=== PATIENT | female | born 1990 | race American Indian/Alaskan Native ===

== ENCOUNTER 2022-03-29 09:04 | Emergency (ER) | payer SELFPAY ==
[2022-03-29] MEDS ORDERED: cloNIDine 0.1 MG TAB PO ONE (13:04)
[2022-03-29 14:15] LABS: Hematocrit 31.9 % (30.3-42.9); Hemoglobin 10.8 gm/dl (10.1-14.3); Mean Corpuscular HGB Conc 34 % (30-34); Platelet Count 350 K/mm3 (140-440); Red Blood Count 5.12 M/mm3 (3.65-5.03)
[2022-03-29 14:16] LABS: Mean Corpuscular Volume 62 fl (79-97); Red Cell Distribution Width 21.5 % (13.2-15.2)
[2022-03-29 14:36] LABS: Blood Urea Nitrogen 7 mg/dL (7-17); Calcium 9.3 mg/dL (8.4-10.2); Hemolysis Index 3
[2022-03-29 14:39] LABS: BUN/Creatinine Ratio 12
[2022-03-29 15:04] LABS: HCG Qualitative,Urine Negative (Negative)
[2022-03-29 15:05] LABS: Bilirubin,Urine NEG (Negative); Blood,Urine NEG (Negative); Color,Urine Yellow (Yellow); Protein,Urine <15 mg/dL mg/dL (Negative); Urobilinogen,Urine < 2.0 mg/dL (<2.0)
[2022-03-29 15:09] LABS: Bacteria,Urine 1+ /HPF (Negative); Mucus,Urine 2+ /HPF
--- NOTE | 2022-03-29 15:32 | Emergency Department Report ---
ED Chest Pain HPI - General Chief Complaint: Sore Throat Stated Complaint: SORE THROAT Time Seen by Provider: 03/29/22 12:59 Source: patient Mode of arrival: Ambulatory Limitations: No Limitations - History of Present Illness Severity scale (0 -10): 10 - Related Data Previous Rx's Medication Instructions Recorded Last Taken Type Ibuprofen [Motrin 600 MG tab] 600 mg PO Q8H PRN #30 tablet 03/29/22 Unknown Rx cephALEXin [Keflex] 500 mg PO BID #14 cap 03/29/22 Unknown Rx Allergies Allergy/AdvReac Type Severity Reaction Status Date / Time No Known Allergies Allergy Unverified 03/29/22 09:21 Heart Score - HEART Score History: Slightly suspicious EKG: Normal Age: < 45 Risk factors: 1-2 risk factors Troponin: < normal limit HEART Score: 1 - EKG Read Time Time EKG Completed: 11:41 EKG Read Time: 11:45 ED Review of Systems ROS: Stated complaint: SORE THROAT Other details as noted in HPI ED Past Medical Hx - Past Medical History Previous Medical History?: No - Surgical History Past Surgical History?: No - Social History Smoking Status: Never Smoker Substance Use Type: None - Medications Home Medications: Home Medications Medication Instructions Recorded Confirmed Last Taken Type Ibuprofen [Motrin 600 MG tab] 600 mg PO Q8H PRN #30 tablet 03/29/22 Unknown Rx cephALEXin [Keflex] 500 mg PO BID #14 cap 03/29/22 Unknown Rx ED Physical Exam - General Limitations: No Limitations ED Course Vital Signs 03/29/22 03/29/22 03/29/22 09:21 13:21 14:01 Temperature 98.4 F Pulse Rate 100 H 89 85 Respiratory 20 18 Rate Blood Pressure 181/133 Blood Pressure 173/127 162/109 [Right] O2 Sat by Pulse 99 100 Oximetry 03/29/22 14:59 Temperature Pulse Rate 85 Respiratory 17 Rate Blood Pressure Blood Pressure 157/115 [Right] O2 Sat by Pulse 100 Oximetry ED Medical Decision Making - Lab Data Result diagrams: 03/29/22 13:08 03/29/22 13:08 Critical care attestation.: If time is entered above; I have spent that time in minutes in the direct care of this critically ill patient, excluding procedure time. ED Disposition Clinical Impression: Chest pain Qualifiers: Chest pain type: unspecified Qualified Code(s): R07.9 - Chest pain, unspecified UTI (urinary tract infection) Qualifiers: Urinary tract infection type: acute cystitis Hematuria presence: without hematuria Qualified Code(s): N30.00 - Acute cystitis without hematuria Syncope Qualifiers: Syncope type: unspecified Qualified Code(s): R55 - Syncope and collapse Disposition: 01 HOME / SELF CARE / HOMELESS Is pt being admited?: No Does the pt Need Aspirin: No Condition: Stable Instructions: Syncope (ED), Nonspecific Chest Pain, Adult, [id number], Urinary Tract Infection, Adult, [id number], Syncope, [id number] Additional Instructions: Medications as prescribed. Follow-up with cardiology and your primary care provider for further evaluation and management. Return to the ER as needed. Prescriptions: cephALEXin [Keflex] 500 mg PO BID #14 cap Ibuprofen [Motrin 600 MG tab] 600 mg PO Q8H PRN #30 tablet PRN Reason: Pain Referrals: JOHAN LEWIS MD [Staff Physician] - 3-5 Days EMEKA MARTINEZ MD [Staff Physician] - 3-5 Days VANDANA ZABALA MD [Staff Physician] - 3-5 Days Forms: Work/School Release Form(ED) Time of Disposition: 15:32
--- NOTE | 2022-03-29 16:44 | Cat Scan Report ---
CT NECK WITH INTRAVENOUS CONTRAST AND MULTIPLANAR RECONSTRUCTION CLINICAL HISTORY: neck pain and swelling, r/o peritonsillar abscess TECHNIQUE: 2.5 mm thick contiguous axial scans were obtained from the skull base down to the aortic arch during intravenous contrast administration. In addition to evaluation of axial source images sagittal and co loan multiplanar reconstructions were produced and reviewed for this report. CONTRAST DOSE REPORT: Omnipaque 300: [address] imaging studies performed at this facility utilize dose modulation, iterative reconstruction o r weight based dosing, if appropriate, to obtain the lowest achievable radiation dose. FINDINGS: AIRWAY: There is enlargement of the palatine tonsils bilaterally with no definite indication of tonsi llar or peritonsillar abscess. Complains of the parapharyngeal space are normally maintained. No levy tional abnormalities are seen along the course of the airway. Nasopharynx, oropharynx, hypopharynx, l arynx and visualized portions of the subglottic airway all have an otherwise unremarkable appearance. LYMPH NODES: There is no indication of cervical lymphadenopathy. ORAL CAVITY/FLOOR OF MOUTH: No abnormalities are seen in evaluation of the oral cavity and tongue. Th e floor the mouth has a normal appearance. MAJOR SALIVARY GLANDS: The parotid and submandibular salivary glands have a normal appearance. NASAL CAVITY AND PARANASAL SINUSES: A small retention cyst or polyp is seen along the inferior latera l aspect of the right maxillary sinus. Paranasal sinuses are otherwise free from inflammatory disease . Bilateral anatoliy bullosa is noted. Pneumatization of the middle turbinates results in expansion of the structures. Air passageways the nasal cavity and OM U are adequately maintained. ORBITS:No abnormalities of the visualized portions of the orbits are identified. Globes, optic nerves , extraocular muscles and lacrimal glands have an unremarkable appearance. THYROID GLAND: The thyroid gland is normal in size and homogeneous in attenuation. No focal thyroid l esions are identified. TEMPORAL BONES:Mastoid air cells are normally pneumatized. CRANIOCERVICAL JUNCTION:No significant abnormality. CERVICAL SPINE: Evaluation of the cervical spine reveals no significant abnormality. Normal alignment is maintained. No significant degenerative changes are identified. LUNG APICES: Evaluation of the lung apices reveals no abnormality. There is no indication of lung nod ule or infiltrate. The visualized portions of the superior mediastinum have an unremarkable appearanc e. CONTRAST ADMINISTRATION: Enhancement of normal vascular structures is demonstrated. No areas of abnor mal contrast enhancement are identified. IMPRESSION: Bilateral enlargement of the palatine tonsils is observed without evidence of tonsillar or peritonsil lar abscess. Signer Name: Trevor Gracia MD Signed: 03/29/2022 4:40 PM Workstation Name: [id number]
[2022-03-29] MEDS ORDERED: KETOROLAC 30 MG/1 ML INJ IV ONE (16:51)
[2022-03-29] MEDS ORDERED: dexAMETHasone 4 MG/ML VIAL IV ONE (16:51)
--- NOTE | 2022-03-29 16:58 | Emergency Department Report ---
ED ENT HPI - General Chief complaint: Sore Throat Stated complaint: SORE THROAT Time Seen by Provider: 03/29/22 12:59 Source: patient Mode of arrival: Ambulatory Limitations: No Limitations - History of Present Illness Initial comments: 32-year-old black female with no past medical history presents to the emergency department for evaluation of 2-day history of worsening sore throat along with swelling to her throat. She states that she has a history of recurrent strep throat but this time and she has some shortness of breath because she feels like her throat is swollen more so than usual in the back. She states that she has had low-grade fever but denies headache, abdominal pain. MD complaint: sore throat, difficulty swallowing -: Gradual, days(s) (2) Location: throat Severity: severe Severity scale (0 -10): 9 Quality: aching Consistency: constant Worsens with: swallowing Associated Symptoms: fever, pain with swallowing, sore throat. denies: cough, gum swelling, toothache, tinnitus, hearing loss, discharge from ear, rhinorrhea - Related Data Previous Rx's Medication Instructions Recorded Last Taken Type Ibuprofen [Motrin 600 MG tab] 600 mg PO Q8H PRN #30 tablet 03/29/22 Unknown Rx cephALEXin [Keflex] 500 mg PO BID #14 cap 03/29/22 Unknown Rx methylPREDNISolone [Medrol 4MG 4 mg PO DAILY #1 pack 03/29/22 Unknown Rx DOSEPAK (21 tabs)] Allergies Allergy/AdvReac Type Severity Reaction Status Date / Time No Known Allergies Allergy Unverified 03/29/22 09:21 ED Dental HPI - General Chief complaint: Sore Throat Stated complaint: SORE THROAT Time Seen by Provider: 03/29/22 12:59 Source: patient Mode of arrival: Ambulatory Limitations: No Limitations - Related Data Previous Rx's Medication Instructions Recorded Last Taken Type Ibuprofen [Motrin 600 MG tab] 600 mg PO Q8H PRN #30 tablet 03/29/22 Unknown Rx cephALEXin [Keflex] 500 mg PO BID #14 cap 03/29/22 Unknown Rx methylPREDNISolone [Medrol 4MG 4 mg PO DAILY #1 pack 03/29/22 Unknown Rx DOSEPAK (21 tabs)] Allergies Allergy/AdvReac Type Severity Reaction Status Date / Time No Known Allergies Allergy Unverified 03/29/22 09:21 ED Review of Systems ROS: Stated complaint: SORE THROAT Other details as noted in HPI Comment: All other systems reviewed and negative Constitutional: denies: chills, fever, malaise, weakness Eyes: denies: vision change ENT: ear pain, throat pain. denies: dental pain, congestion Respiratory: denies: cough, shortness of breath, SOB with exertion, SOB at rest, stridor, wheezing Cardiovascular: denies: chest pain, palpitations ED Past Medical Hx - Past Medical History Previous Medical History?: No - Surgical History Past Surgical History?: No - Social History Smoking Status: Never Smoker Substance Use Type: None - Medications Home Medications: Home Medications Medication Instructions Recorded Confirmed Last Taken Type Ibuprofen [Motrin 600 MG tab] 600 mg PO Q8H PRN #30 tablet 03/29/22 Unknown Rx cephALEXin [Keflex] 500 mg PO BID #14 cap 03/29/22 Unknown Rx methylPREDNISolone [Medrol 4MG 4 mg PO DAILY #1 pack 03/29/22 Unknown Rx DOSEPAK (21 tabs)] ED Physical Exam - General Limitations: No Limitations General appearance: alert, in no apparent distress - Head Head exam: Absent: atraumatic, normocephalic - Eye Eye exam: Present: normal appearance. Absent: conjunctival injection, periorbital swelling, periorbital tenderness - Expanded ENT Exam Expanded Mouth exam: Present: trismus. Absent: drooling, muffled voice Throat exam: Positive: tonsillar erythema, tonsillomegaly, tonsillar exudate, L peritonsillar mass - Neck Neck exam: Present: normal inspection, tenderness, lymphadenopathy - Respiratory Respiratory exam: Present: normal lung sounds bilaterally. Absent: respiratory distress, wheezes, rales, rhonchi, stridor, chest wall tenderness - Cardiovascular Cardiovascular Exam: Present: tachycardia, normal heart sounds - GI/Abdominal GI/Abdominal exam: Present: soft, normal bowel sounds. Absent: distended, tenderness, guarding, rebound, rigid - Extremities Exam Extremities exam: Present: normal inspection, normal capillary refill - Back Exam Back exam: Present: normal inspection. Absent: CVA tenderness (R), CVA tenderness (L), vertebral tenderness - Neurological Exam Neurological exam: Present: alert, oriented X3, CN II-XII intact, normal gait - Psychiatric Psychiatric exam: Present: normal affect, normal mood - Skin Skin exam: Present: warm, dry, intact, normal color ED Course Vital Signs 03/29/22 03/29/22 03/29/22 09:21 13:21 14:01 Temperature 98.4 F Pulse Rate 100 H 89 85 Respiratory 20 18 Rate Blood Pressure 181/133 Blood Pressure 173/127 162/109 [Right] O2 Sat by Pulse 99 100 Oximetry 03/29/22 03/29/22 14:59 17:16 Temperature 98.5 F Pulse Rate 85 84 Respiratory 17 18 Rate Blood Pressure Blood Pressure 157/115 154/110 [Right] O2 Sat by Pulse 100 100 Oximetry ED Medical Decision Making - Lab Data Result diagrams: 03/29/22 13:08 03/29/22 13:08 - Radiology Data Radiology results: report reviewed, image reviewed CT soft tissue neck with contrast: FINDINGS: AIRWAY: There is enlargement of the palatine tonsils bilaterally with no definite indication of tonsillar or peritonsillar abscess. Complains of the parapharyngeal space are normally maintained. No additional abnormalities are seen along the course of the airway. Nasopha rynx, oropharynx, hypopharynx, larynx and visualized portions of the subglottic airway all have an otherwise unremarkable appearance. LYMPH NODES: There is no indication of cervical lymphadenopathy. ORAL CAVITY/FLOOR OF MOUTH: No abnormalities are seen in evaluation of the oral cavity and tongue. The floor the mouth has a normal appearance. MAJOR SALIVARY GLANDS: The parotid and submandibular salivary glands have a normal appearance. NASAL CAVITY AND PARANASAL SINUSES: A small retention cyst or polyp is seen along the inferior lateral aspect of the right maxillary sinus. Paranasal sinuses are otherwise free from inflammatory disease. Bilateral anatoliy bullosa is noted. Pneumatization of the middle turbinates results in expansion of the structures. Air passageways the nasal cavity and OM U are adequately maintained. ORBITS:No abnormalities of the visualized portions of the orbits are identified. Globes, optic nerves, extraocular muscles and lacrimal glands have an unremarkable appearance. THYROID GLAND: The thyroid gland is normal in size and homogeneous in attenuation. No focal thyroid lesions are identified. TEMPORAL BONES:Mastoid air cells are normally pneumatized. CRANIOCERVICAL JUNCTION:No significant abnormality. CERVICAL SPINE: Evaluation of the cervical spine reveals no significant abnormality. Normal alignment is maintained. No significant degenerative changes are identified. LUNG APICES: Evaluation of the lung apices reveals no abnormality. There is no indication of lung nodule or infiltrate. The visualized portions of the superior mediastinum have an unremarkable appearance. CONTRAST ADMINISTRATION: Enhancement of normal vascular structures is demonstrated. No areas of abnormal contrast enhancement are identified. IMPRESSION: Bilateral enlargement of the palatine tonsils is observed without evidence of tonsillar or peritonsillar abscess. - Medical Decision Making 32-year-old black female with no past medical history presents to the emergency department for evaluation of 2-day history of worsening sore throat along with swelling to her throat. She states that she has a history of recurrent strep throat but this time and she has some shortness of breath because she feels like her throat is swollen more so than usual in the back. She states that she has had low-grade fever but denies headache, abdominal pain. On assessment, patient appeared to have left peritonsillar abscess, CT scan soft tissue neck with contrast was without any evidence of a peritonsillar or tonsillar abscess. Rapid strep negative for strep. Patient noted to have urina ry tract infection. Patient be discharged home with 7-day course of Keflex along with Medrol dose pack for tonsillary swelling along with ibuprofen. Patient noted to have elevated blood pressure in the emergency department, which was treated with one-time dose of clonidine 0.1 mg, and blood pressure improved significantly. Patient denies any history of elevated blood pressure, so she was advised to record and monitor blood pressure for the next several days and if blood pressure remains have to take those readings to her primary care provider for further evaluation and management. She is advised to take medications as prescribed and follow-up with primary care provider and/or ear nose and throat doctor for further evaluation and management. She verbalizes understanding of and agreement with plan of care. Critical care attestation.: If time is entered above; I have spent that time in minutes in the direct care of this critically ill patient, excluding procedure time. ED Disposition Clinical Impression: Chest pain, Syncope, Exudative pharyngitis, Elevated blood pressure reading UTI (urinary tract infection) Qualifiers: Urinary tract infection type: acute cystitis Hematuria presence: without hematuria Qualified Code(s): N30.00 - Acute cystitis without hematuria Disposition: HOME / SELF CARE / HOMELESS Is pt being admited?: No Does the pt Need Aspirin: No Condition: Stable Instructions: Urinary Tract Infection, Adult, [id number], Preventing Hypertension, Sore Throat, [id number], Syncope (ED) Additional Instructions: Take medications as prescribed. Monitor and record your blood pressure over the next several days then take those readings and follow up with your primary care provider for further evaluation and management. Return to the ER as needed. Prescriptions: cephALEXin [Keflex] 500 mg PO BID #14 cap methylPREDNISolone [Medrol 4MG DOSEPAK (21 tabs)] 4 mg PO DAILY #1 pack Ibuprofen [Motrin 600 MG tab] 600 mg PO Q8H PRN #30 tablet PRN Reason: Pain Referrals: EMEKA MARTINEZ MD [Staff Physician] - 3-5 Days JOHAN LEWIS MD [Staff Physician] - 3-5 Days VANDANA ZABALA MD [Staff Physician] - 3-5 Days Forms: Work/School Release Form(ED) Time of Disposition: 16:57
[2022-03-29 17:17] VITALS: BP 154/110
== END 2022-03-29 17:39 | disposition home or self-care (01) ==
LOC: ED 09:04
DX: R07.9 Chest pain, unspecified (principal); N39.0 Urinary tract infection, site not specified; R55 Syncope and collapse; J02.9 Acute pharyngitis, unspecified; I10 Essential (primary) hypertension
CPT/HCPCS: 36415; 70491; 80048; 81001; 81025; 85027; 87116; 87430; 96374; 96375; 99284; J1100; J1885; Q9967